=== PATIENT | male | born 1955 | race Caucasian/White ===

== ENCOUNTER → 2017-04-05 | Outpatient (CLI) | payer OTHER ==
[~2017-04-05] MED LIST: ACTOS30 MG PO; ALTACE10 MG PO; LEXAPRO10 MG PO; PRAVACHOL80 MG PO
[2017-04-05 08:33] LABS: HEMATOCRIT 44.3 % (38.0-50.0); HEMOGLOBIN 14.4 G/DL (12.5-16.6); MCH 28.7 PG (29.0-34.0); MCHC 32.5 G/DL (30.0-36.0); MCV 88.4 FL (86-99); PLATELET COUNT 159 K/uL (156-360); RBC DIS.WIDTH-CV 12.9 % (11.8-14.6); RBC DIS.WIDTH-SD 41.9 % (39-53); RED BLOOD COUNT 5.01 M/uL (4.00-5.50); WHITE BLOOD COUNT 5.2 K/uL (4.1-10.2)
[2017-04-05 08:43] LABS: PTT 27.5 SEC (25-37)
[2017-04-06 18:15] LABS: Flow Clinical Information NOT PROVIDED (()); Flow Number of Markers 22 (()); Flow Spec Viability 32 % (())
== END | disposition home or self-care (01) ==
LOC: OPR 07:43 → EDSTATUS 08:00 → OPR 08:00
PROVIDERS: Family Medicine; Radiology Diagnostic Radiology
PROC: 0WBC3ZX Excision of Mediastinum, Percutaneous Approach, Diagnostic (ICD-10-PCS; principal; 2017-04-05)
DX: C38.1 Malignant neoplasm of anterior mediastinum (principal); I10 Essential (primary) hypertension; E11.9 Type 2 diabetes mellitus without complications; R97.20 Elevated prostate specific antigen [PSA]; E78.00 Pure hypercholesterolemia, unspecified; D69.6 Thrombocytopenia, unspecified; F32.9 Major depressive disorder, single episode, unspecified; F41.9 Anxiety disorder, unspecified
CPT/HCPCS: 71045; 77012; 82948; 85027; 85610; 85730; 88305